=== PATIENT | male | born 1945 | race African-American/Black ===

== ENCOUNTER → 2017-06-15 | Outpatient (CLI) | payer MEDICARE, OTHER ==
[2016-08-13 15:00] VITALS: BP 106/75
[~2017-06-15] MED LIST: CYCL5TAB PO; HYDR50TA6 PO; LORA10CA PO; METO50TA6 PO; SERT100T8 PO
[2017-06-15 15:37] LABS: CREATININE 1.1 mg/dL (0.7-1.3); GFR 80.1
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
== END | disposition home or self-care (01) ==
LOC: RAD 14:27
PROVIDERS: ATTEND Psychiatry & Neurology Neurology
DX: M79.5 Residual foreign body in soft tissue (principal); R26.81 Unsteadiness on feet
CPT/HCPCS: 36415; 71020; 82306; 82550; 82565; 82607; 84443; 84520

== ENCOUNTER → 2017-06-21 | Outpatient (CLI) | payer MEDICARE, OTHER ==
[2016-08-13 15:00] VITALS: BP 106/75
[~2017-06-21] MED LIST changes: +METO50TA2 PO; -METO50TA6 PO
--- NOTE | 2017-06-23 16:48 | EEG ---
DATE OF SERVICE: 06/21/2017 OBJECTIVE: This is a 72-year-old male patient with history of cognitive impairment and memory problems. EEG was requested to evaluate cerebral activity. METHODS: Twenty electrodes were applied according to the international 10-20 electrode placement system. EKG monitoring, hyperventilation, intermittent photic stimulation, monopolar and bipolar montages are routinely utilized. The record was obtained on a digital system with video monitoring. FINDINGS: 1. Background: The patient was recorded in the awake and drowsy states. No actual sleep state was recorded. The overall background amplitude is 10-20 microvolts. A posterior dominant rhythm of 8-9 Hz is observed. 2. Abnormalities: No specific epileptiform discharge or electrographic seizure is seen. No focal or diffuse slowing. 3. Activation: Hyperventilation was performed with good efforts and normal response. Intermittent photic stimulation was performed with photic driving. No specific epileptiform discharge or electrographic seizure induced by hyperventilation or intermittent photic stimulation. IMPRESSION: This EEG is within the normal limits of the study for the awake and drowsy states. No actual sleep state was recorded. No focal, lateralizing, specific epileptiform discharge or electrographic seizure is seen. SALMA HENNESSY MD DR: RAY/pratima JOB#: [id number] / [id number] DIANNA
== END | disposition home or self-care (01) ==
LOC: RT 08:28
PROVIDERS: ATTEND Psychiatry & Neurology Neurology
DX: G31.84 Mild cognitive impairment of uncertain or unknown etiology (principal); R06.4 Hyperventilation
CPT/HCPCS: 95816

== ENCOUNTER → 2017-08-07 | Outpatient (CLI) | payer MEDICARE, OTHER ==
[2016-08-13 15:00] VITALS: BP 106/75
[~2017-08-07] MED LIST changes: -METO50TA2 PO; +METO50TA6 PO
--- NOTE | 2017-08-07 12:33 | KCIC ---
CT cervical spine INDICATION: Unsteady gait for one year. Leg weakness.. COMPARISON: None Available. Technique: Standard noncontrast axial images. Additional sagittal and coronal reconstructions were also performed. Exposure: One or more of the following individualized dose reduction techniques were utilized for this examination: 1. Automated exposure control 2. Adjustment of the mA and/or kV according to patient size 3. Use of iterative reconstruction technique. FINDINGS: Lower skull is unremarkable Ring of C1 is intact Relationship of C1 with the occipital condyles is intact. Relationship of C1 with C2 is maintained. No evidence of acute fracture. No aggressive bone destruction. No significant subluxation. There is straightening of the normal cervical lordosis. Multilevel degenerative spondylosis. There are osteophytes. Uncovertebral joint degenerative changes and facet joint hypertrophy are noted. Mild central osseous spinal canal narrowing at multiple levels. Bilateral neural foraminal stenosis at multiple levels. The paraspinous soft tissues are unremarkable. Lung apices are clear. Impression: 1. Multilevel cervical spondylosis. Mild osseous central canal narrowing and bilateral multilevel neural foraminal stenosis. 2. No evidence of acute fracture or subluxation. Electronically signed by: Júnior Maldonado MD (08/07/2017 12:30 PM) [facility]
== END | disposition home or self-care (01) ==
LOC: KCIC CT 09:45
PROVIDERS: ATTEND Psychiatry & Neurology Neurology
DX: M47.892 Other spondylosis, cervical region (principal); R26.81 Unsteadiness on feet; R53.1 Weakness
CPT/HCPCS: 72125

== ENCOUNTER → 2017-08-16 | Outpatient (CLI) | payer MEDICARE, OTHER ==
[2016-08-13 15:00] VITALS: BP 106/75
[2017-08-16 15:28] LABS: CREATININE 1.2 mg/dL (0.7-1.3); GFR 72.4
== END | disposition home or self-care (01) ==
LOC: LAB 14:44
PROVIDERS: ATTEND Psychiatry & Neurology Neurology
DX: R32 Unspecified urinary incontinence (principal)
CPT/HCPCS: 36415; 82306; 82550; 82565; 84443; 84520

== ENCOUNTER → 2017-09-20 | Outpatient (CLI) | payer MEDICARE, OTHER | END | disposition home or self-care (01) | LOC: CT 08:12 | DX: M53.2X6 Spinal instabilities, lumbar region (principal); M47.896 Other spondylosis, lumbar region; M48.061 Spinal stenosis, lumbar region without neurogenic claudication; M51.26 Other intervertebral disc displacement, lumbar region; M51.27 Other intervertebral disc displacement, lumbosacral region; R26.89 Other abnormalities of gait and mobility | CPT/HCPCS: 72131 ==

== ENCOUNTER 2017-09-27 18:05 | Emergency (ER) | payer MEDICARE, OTHER ==
[2017-09-27 18:20] LABS: POC GLUCOSE 132 mg/dL (70-99)
[2017-09-27 18:27] LABS: ADD MAN DIFF? NO
[2017-09-27] MEDS: IV NORMAL SALINE 1000ML BAG 1,000 ML IV ×2 (18:28)
[2017-09-27 18:29] LABS: BASO % 1 % (0-3); EOS # 0.1 x10^3/uL (0.0-0.7); EOS % 1 % (0-3); HEMATOCRIT 39.4 % (39.0-53.0); HEMOGLOBIN 13.3 g/dL (13.0-17.5); LYMPH # 2.6 x10^3/uL (1.0-4.8); LYMPH % 50 % (24-48); MEAN CORPUSCULAR HEMOGLOBIN 32 pg (25-35); MEAN CORPUSCULAR HGB CONC 34 g/dL (31-37); MEAN CORPUSCULAR VOLUME 94 fL (79-100); MONO # 0.3 x10^3/uL (0.0-1.1); MONO % 6 % (0-9); NEUT # 2.3 x10^3uL (1.8-7.7); NEUT % 42 % (31-73); PLATELET COUNT 278 x10^3/uL (140-400); RED CELL DISTRIBUTION WIDTH 13.8 % (11.5-14.5); WHITE BLOOD COUNT 5.3 x10^3/uL (4.0-11.0)
[2017-09-27 18:42] LABS: ANION GAP 6 (6-14); BLOOD UREA NITROGEN 19 mg/dL (8-26); BUN/CREATININE RATIO 19 (6-20); CALCIUM 8.3 mg/dL (8.5-10.1); CARBON DIOXIDE 29 mmol/L (21-32); CHLORIDE 103 mmol/L (98-107); GFR 89.4; GLUCOSE 153 mg/dL (70-99); POTASSIUM 3.7 mmol/L (3.5-5.1); SODIUM 138 mmol/L (136-145)
[2017-09-27 18:43] LABS: D-DIMER 0.52 ug/mlFEU (0.00-0.50)
[2017-09-27 18:48] LABS: ALBUMIN 3.9 g/dL (3.4-5.0); ALK PHOS 64 U/L (46-116); ALT (SGPT) 16 U/L (16-63); AST (SGOT) 18 U/L (15-37); MAGNESIUM 1.8 mg/dL (1.8-2.4); TOTAL BILIRUBIN 0.4 mg/dL (0.2-1.0); TOTAL PROTEIN 7.8 g/dL (6.4-8.2)
[2017-09-27 18:51] LABS: TROPONINI < 0.017 ng/mL (0.000-0.055)
[2017-09-27 18:53] LABS: NT-PRO BNP 73 pg/mL (0-124)
[2017-09-27 18:57] LABS: THYROID STIM HORMONE (TSH) 0.961 uIU/mL (0.358-3.74)
== END 2017-09-27 22:00 | disposition home or self-care (01) ==
LOC: ER 18:05
DX: R20.2 Paresthesia of skin (principal); R20.0 Anesthesia of skin; R42 Dizziness and giddiness; E78.00 Pure hypercholesterolemia, unspecified; I10 Essential (primary) hypertension; M19.90 Unspecified osteoarthritis, unspecified site; Z79.899 Other long term (current) drug therapy
CPT/HCPCS: 36415; 71045; 80053; 82962; 83735; 83880; 84443; 84484; 85025; 85379; 93005; 96360; 99285-25; J7030

== ENCOUNTER → 2018-03-29 | Outpatient (CLI) | payer MEDICARE, OTHER ==
[2018-03-29 16:07] LABS: ALT (SGPT) 18 U/L (16-63); AST (SGOT) 14 U/L (15-37); BLOOD UREA NITROGEN 20 mg/dL (8-26); CREATINE KINASE 147 U/L (39-308); CREATININE 1.1 mg/dL (0.7-1.3); GFR 79.8
[2018-03-29 16:07] LABS: GLUCOSE 83 mg/dL (70-99)
[2018-03-29 16:54] LABS: VITAMIN-B12 252 pg/mL (247-911)
== END | disposition home or self-care (01) ==
LOC: LAB 15:35
DX: R20.0 Anesthesia of skin (principal); I10 Essential (primary) hypertension; E78.5 Hyperlipidemia, unspecified; Z79.899 Other long term (current) drug therapy
CPT/HCPCS: 36415; 82550; 82565; 82607; 82947; 84450; 84460; 84520

== ENCOUNTER 2018-11-09 10:19 | Observation (INO) | payer MEDICARE, OTHER ==
[~2018-11-09] VITALS: Ht 180.3 cm; Wt 89.4 kg
[2018-11-09] MEDS ORDERED: MECLIZINE HCL 12.5 MG TABLET. PO ONE (10:45)
[2018-11-09] MEDS ORDERED: IV NORMAL SALINE 1000ML BAG 1,000 ML IV ONE ×2 (10:45→15:15)
--- NOTE | 2018-11-09 10:45 | PHYS DOC ---
Past Medical History Past Medical History: High Cholesterol, Hypertension, Other Additional Past Medical Histor: osteoarthritis Past Surgical History: Other Additional Past Surgical Histo: unknown Alcohol Use: None Drug Use: None Adult General Chief Complaint Chief Complaint: DIZZY/LIGHT HEADED HPI HPI Patient is a 73 year old male with history of hypertension, high cholesterol, presenting to the ED today complaining of dizziness especially when he is up and moving that began this morning when he was getting ready to go to a . Patient states he attempted to ambulate to his car, he became dizzy and weak. His daughter had to get him to the hospital. Denies any headache, chest pain or shortness of breath. Patient states his dizziness is worse when he is up and moving. He states he has a sensation of things around him spinning. Review of Systems Review of Systems Constitutional: Denies fever or chills [] Eyes: Denies change in visual acuity, redness, or eye pain [] HENT: Denies nasal congestion or sore throat [] Respiratory: Denies cough or shortness of breath [] Cardiovascular: No additional information not addressed in HPI [] GI: Denies abdominal pain, nausea, vomiting, bloody stools or diarrhea [] : Denies dysuria or hematuria [] Musculoskeletal: Denies back pain or joint pain [] Integument: Denies rash or skin lesions [] Neurologic: Reports dizziness. Denies headache, focal weakness or sensory changes [] All other systems were reviewed and found to be within normal limits, except as documented in this note. Current Medications Current Medications Current Medications Medications (Trade) Dose Ordered Sig/Regine Start Time Stop Time Status Last Admin Dose Admin Meclizine HCl (Antivert) 25 mg 1X ONCE 11/09/18 10:45 11/09/18 10:46 DC 11/09/18 11:41 25 MG Sodium Chloride 1,000 ml @ 1,000 mls/hr 1X ONCE 11/09/18 10:45 11/09/18 11:44 DC 11/09/18 11:43 1,000 MLS/HR Allergies Allergies Allergies Coded Allergies Type Severity Reaction Last Updated Verified No Known Drug Allergies 08/10/16 No Physical Exam Physical Exam Constitutional: Well developed, well nourished, no acute distress, non-toxic appearance. [] HENT: Normocephalic, atraumatic, bilateral external ears normal, oropharynx moist, no oral exudates, nose normal. [] Eyes: PERRLA, EOMI, conjunctiva normal, no discharge. [] Neck: Normal range of motion, no tenderness, supple, no stridor. [] Cardiovascular:Heart rate regular rhythm, no murmur [] Lungs & Thorax: Bilateral breath sounds clear to auscultation [] Abdomen: Bowel sounds normal, soft, no tenderness, no masses, no pulsatile masses. [] Skin: Warm, dry, no erythema, no rash. [] Back: No tenderness, no CVA tenderness. [] Extremities: No tenderness, no cyanosis, no clubbing, ROM intact, no edema. [] Neurologic: Alert and oriented X 3, normal motor function, normal sensory function, no focal deficits noted. Cranial nerves II through XII intact Psychologic: Affect normal, judgement normal, mood normal. [] Current Patient Data Vital Signs Vital Signs Date Time Temp Pulse Resp B/P (MAP) Pulse Ox O2 Delivery O2 Flow Rate FiO2 11/09/18 14:03 69 18 98 11/09/18 10:20 98.3 148/85 (106) Room Air 98.3 Lab Values Laboratory Tests Test 11/09/18 11:03 11/09/18 11:10 Glucose (Fingerstick) 82 mg/dL (70-99) White Blood Count 4.5 x10^3/uL (4.0-11.0) Red Blood Count 4.08 x10^6/uL (4.30-5.70) L Hemoglobin 12.7 g/dL (13.0-17.5) L Hematocrit 38.7 % (39.0-53.0) L Mean Corpuscular Volume 95 fL (79-100) Mean Corpuscular Hemoglobin 31 pg (25-35) Mean Corpuscular Hemoglobin Concent 33 g/dL (31-37) Red Cell Distribution Width 13.4 % (11.5-14.5) Platelet Count 213 x10^3/uL (140-400) Neutrophils (%) (Auto) 49 % (31-73) Lymphocytes (%) (Auto) 44 % (24-48) Monocytes (%) (Auto) 6 % (0-9) Eosinophils (%) (Auto) 0 % (0-3) Basophils (%) (Auto) 0 % (0-3) Neutrophils # (Auto) 2.2 x10^3uL (1.8-7.7) Lymphocytes # (Auto) 2.0 x10^3/uL (1.0-4.8) Monocytes # (Auto) 0.3 x10^3/uL (0.0-1.1) Eosinophils # (Auto) 0.0 x10^3/uL (0.0-0.7) Basophils # (Auto) 0.0 x10^3/uL (0.0-0.2) Sodium Level 141 mmol/L (136-145) Potassium Level 3.9 mmol/L (3.5-5.1) Chloride Level 105 mmol/L (98-107) Carbon Dioxide Level 28 mmol/L (21-32) Anion Gap 8 (6-14) Blood Urea Nitrogen 16 mg/dL (8-26) Creatinine 0.8 mg/dL (0.7-1.3) Estimated GFR (Cockcroft-Gault) 115.3 BUN/Creatinine Ratio 20 (6-20) Glucose Level 97 mg/dL (70-99) Calcium Level 8.7 mg/dL (8.5-10.1) Magnesium Level 2.3 mg/dL (1.8-2.4) Total Bilirubin 0.5 mg/dL (0.2-1.0) Aspartate Amino Transferase (AST) 15 U/L (15-37) Alanine Aminotransferase (ALT) 22 U/L (16-63) Alkaline Phosphatase 61 U/L (46-116) Troponin I Quantitative < 0.017 ng/mL (0.000-0.055) LK-Ucs-H-Type Natriuretic Peptide 93 pg/mL (0-124) Total Protein 7.0 g/dL (6.4-8.2) Albumin 3.3 g/dL (3.4-5.0) L Albumin/Globulin Ratio 0.9 (1.0-1.7) L Thyroid Stimulating Hormone (TSH) 0.985 uIU/mL (0.358-3.74) Laboratory Tests 11/09/18 11:10 Laboratory Tests 11/09/18 11:10 EKG EKG [] Radiology/Procedures Radiology/Procedures [] Course & Med Decision Making Course & Med Decision Making Pertinent Labs and Imaging studies reviewed. (See chart for details) This is a 73-year-old male patient presented to the ED today with dizziness that began this morning. Patient appears to have vertigo physical exam. His lab work is negative. CT of the head is negative for chest x-ray is negative. We tried to get patient up and ambulating. He walked for a short distance but started complaining of dizziness while ambulating. He felt things around him is spinning. Spoke with Dr. Rico who will follow-up with patient. Spoke with who accepted patient for admission. Dragon Disclaimer Dragon Disclaimer This electronic medical record was generated, in whole or in part, using a voice recognition dictation system. Departure Departure Impression: Primary Impression: Dizziness Additional Impression: Vertigo Disposition: ADMITTED INPATIENT Condition: STABLE Referrals: IGNACIO DUKE (PCP) Problem Qualifiers SAMMY NOEL APRN Nov 09, 2018 10:45
[2018-11-09 11:20] LABS: BASO % 0 % (0-3); EOS % 0 % (0-3); HEMATOCRIT 38.7 % (39.0-53.0); HEMOGLOBIN 12.7 g/dL (13.0-17.5); LYMPH % 44 % (24-48); MEAN CORPUSCULAR HEMOGLOBIN 31 pg (25-35); MEAN CORPUSCULAR HGB CONC 33 g/dL (31-37); MEAN CORPUSCULAR VOLUME 95 fL (79-100); MONO # 0.3 x10^3/uL (0.0-1.1); MONO % 6 % (0-9); NEUT # 2.2 x10^3uL (1.8-7.7); NEUT % 49 % (31-73); PLATELET COUNT 213 x10^3/uL (140-400); RED BLOOD COUNT 4.08 x10^6/uL (4.30-5.70); RED CELL DISTRIBUTION WIDTH 13.4 % (11.5-14.5); WHITE BLOOD COUNT 4.5 x10^3/uL (4.0-11.0)
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
--- NOTE | 2018-11-09 11:33 | RAD ---
CT HEAD WO CONTRAST Indication: Dizziness. Exposure: One or more of the following individualized dose reduction techniques were utilized for this examination: 1. Automated exposure control 2. Adjustment of the mA and/or kV according to patient size 3. Use of iterative reconstruction technique. Comparison: August 10, 2016 Contrast: None FINDINGS: Posterior fossa unremarkable. No evidence of acute intracranial hemorrhage, mass effect, midline shift or abnormal extra-axial fluid collection. Low-density in the white matter bilaterally, a nonspecific finding, but which is commonly due to chronic small vessel ischemic disease in a patient of this age. Mild prominence of ventricles and sulci compatible with mild atrophy. Orbits unremarkable. Partially visualized sinuses are clear. Intracranial arterial calcifications. No acute skull abnormality. IMPRESSION: Chronic findings detailed above. No acute intracranial hemorrhage or mass effect. Electronically signed by: Júnior Maldonado MD (11/09/2018 11:30 AM) [id number]
[2018-11-09 12:06] LABS: CALCIUM 8.7 mg/dL (8.5-10.1); CREATININE 0.8 mg/dL (0.7-1.3); GFR 115.3; POTASSIUM 3.9 mmol/L (3.5-5.1)
[2018-11-09 12:36] LABS: ALBUMIN 3.3 g/dL (3.4-5.0); ALBUMIN/GLOBULIN RATIO 0.9 (1.0-1.7); MAGNESIUM 2.3 mg/dL (1.8-2.4); TOTAL BILIRUBIN 0.5 mg/dL (0.2-1.0)
--- NOTE | 2018-11-09 15:14 | EKG ---
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
[2018-11-09] MEDS ORDERED: ACETAMINOPHEN 325 MG TABLET. PO PRN ×2 (15:15→16:15)
[2018-11-09] MEDS ORDERED: ONDANSETRON PF 4 MG/2 ML VIAL. IV PRN ×3 (15:15→16:15)
[2018-11-09] MEDS ORDERED: MECLIZINE HCL 12.5 MG TABLET. PO PRN (15:30)
[2018-11-09 16:03] VITALS: BP 165/104
[2018-11-09] MEDS ORDERED: DOCUSATE SODIUM 100 MG CAPSULE. PO PRN (16:15)
[2018-11-09] MEDS ORDERED: LORazepam 0.5 MG TABLET PO PRN (16:15)
[2018-11-09] MEDS ORDERED: guaiFENesin ORAL 200 MG/10 ML LIQUID. PO PRN (16:15)
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
[2018-11-09] MEDS ORDERED: CYCLOBENZAPRINE 10 MG TABLET. PO PRN (16:45)
[2018-11-09] MEDS: IPRATRPIUM/ALBUTEROL 0.5/2.5MG 3 ML NEBU. NEB SCH ×3 (17:00→23:38)
[2018-11-09 19:56] VITALS: BP 128/78
[2018-11-09] MEDS ORDERED: POLYETHYLENE GLYCOL 3350 17 GM PACKET. PO PRN (20:15)
[2018-11-09] MEDS: METOPROLOL TART IMMED RELEASE 50 MG TABLET. PO SCH (21:07)
[2018-11-09 23:16] VITALS: BP 152/93
[2018-11-10] VITALS (7 sets, daily range): BP systolic 126–222; BP diastolic 75–96
[2018-11-10] MEDS: LABETALOL 20 MG/4 ML DISP.SYRIN. IVP PRN (03:18)
[2018-11-10] MEDS: IPRATRPIUM/ALBUTEROL 0.5/2.5MG 3 ML NEBU. NEB SCH ×2 (03:32→07:23)
[2018-11-10 05:58] LABS: BASO % 1 % (0-3); EOS % 1 % (0-3); HEMATOCRIT 36.6 % (39.0-53.0); HEMOGLOBIN 12.3 g/dL (13.0-17.5); LYMPH % 45 % (24-48); MEAN CORPUSCULAR HEMOGLOBIN 32 pg (25-35); MEAN CORPUSCULAR HGB CONC 34 g/dL (31-37); MEAN CORPUSCULAR VOLUME 95 fL (79-100); MONO # 0.2 x10^3/uL (0.0-1.1); MONO % 5 % (0-9); NEUT # 2.2 x10^3uL (1.8-7.7); NEUT % 48 % (31-73); PLATELET COUNT 206 x10^3/uL (140-400); RED BLOOD COUNT 3.87 x10^6/uL (4.30-5.70); RED CELL DISTRIBUTION WIDTH 13.7 % (11.5-14.5); WHITE BLOOD COUNT 4.5 x10^3/uL (4.0-11.0)
[2018-11-10 06:12] LABS: CALCIUM 8.3 mg/dL (8.5-10.1); GFR 89.1; POTASSIUM 3.8 mmol/L (3.5-5.1)
[2018-11-10] MEDS ORDERED: MAGNESIUM CITRATE 296 ML SOLUTION. PO ONE (09:00)
[2018-11-10] MEDS: hydroCHLOROthiazide 25 MG TABLET PO SCH (09:44)
[2018-11-10] MEDS: METOPROLOL TART IMMED RELEASE 50 MG TABLET. PO SCH ×2 (09:44→20:50)
[2018-11-10] MEDS ORDERED: ALBUTEROL SULFATE 2.5 MG/3 ML NEBU. NEB PRN (09:45)
[2018-11-10] MEDS: SERTRALINE 50 MG TABLET. PO SCH (09:48)
[2018-11-10] MEDS: ENOXAPARIN 40 MG/0.4 ML SYRINGE. SQ SCH (09:52)
--- NOTE | 2018-11-10 12:26 | PDOC ---
PROGRESS NOTES Chief Complaint Chief Complaint Unsteady gait concern for posterior circulation event, currently resolved Lower extremity weakness Slurred speech concern for neurological event History of hypertension fairly controlled at the present time Constipation Plan: Symptomatic relief of symptoms, mag citrate We will do MRI of the head Neurology consultation has been requested Resume home medications Fall precautions Further recommendations based on the clinical course History of Present Illness History of Present Illness No new complaints during my visit. The patient is neurologically intact at the present time he does not refer recurrence of the symptoms that brought him into the hospital. Plan of care explained detail Vitals Vitals Vital Signs Date Time Temp Pulse Resp B/P (MAP) Pulse Ox O2 Delivery O2 Flow Rate FiO2 11/10/18 11:00 97.9 82 20 140/86 (104) 98 Room Air 97.9 Physical Exam General: Alert, Oriented X3, Cooperative Heart: Regular rate, Normal S1, Normal S2 Lungs: Clear Abdomen: Normal bowel sounds, Soft, No tenderness Extremities: No clubbing, No cyanosis, No edema Skin: No rashes, No breakdown Labs LABS Laboratory Tests Test 11/10/18 05:05 White Blood Count 4.5 x10^3/uL (4.0-11.0) Red Blood Count 3.87 x10^6/uL (4.30-5.70) Hemoglobin 12.3 g/dL (13.0-17.5) Hematocrit 36.6 % (39.0-53.0) Mean Corpuscular Volume 95 fL (79-100) Mean Corpuscular Hemoglobin 32 pg (25-35) Mean Corpuscular Hemoglobin Concent 34 g/dL (31-37) Red Cell Distribution Width 13.7 % (11.5-14.5) Platelet Count 206 x10^3/uL (140-400) Neutrophils (%) (Auto) 48 % (31-73) Lymphocytes (%) (Auto) 45 % (24-48) Monocytes (%) (Auto) 5 % (0-9) Eosinophils (%) (Auto) 1 % (0-3) Basophils (%) (Auto) 1 % (0-3) Neutrophils # (Auto) 2.2 x10^3uL (1.8-7.7) Lymphocytes # (Auto) 2.0 x10^3/uL (1.0-4.8) Monocytes # (Auto) 0.2 x10^3/uL (0.0-1.1) Eosinophils # (Auto) 0.0 x10^3/uL (0.0-0.7) Basophils # (Auto) 0.0 x10^3/uL (0.0-0.2) Sodium Level 143 mmol/L (136-145) Potassium Level 3.8 mmol/L (3.5-5.1) Chloride Level 107 mmol/L (98-107) Carbon Dioxide Level 27 mmol/L (21-32) Anion Gap 9 (6-14) Blood Urea Nitrogen 12 mg/dL (8-26) Creatinine 1.0 mg/dL (0.7-1.3) Estimated GFR (Cockcroft-Gault) 89.1 Glucose Level 131 mg/dL (70-99) Calcium Level 8.3 mg/dL (8.5-10.1) Assessment and Plan Assessmemt and Plan Problems Medical Problems: (1) Dizziness Status: Acute (2) Vertigo Status: Acute Comment Review of Relevant I have reviewed the following items catia (where applicable) has been applied. Labs Laboratory Tests Test 11/09/18 11:03 11/09/18 11:10 11/10/18 05:05 Glucose (Fingerstick) 82 mg/dL (70-99) White Blood Count 4.5 x10^3/uL (4.0-11.0) 4.5 x10^3/uL (4.0-11.0) Red Blood Count 4.08 x10^6/uL (4.30-5.70) 3.87 x10^6/uL (4.30-5.70) Hemoglobin 12.7 g/dL (13.0-17.5) 12.3 g/dL (13.0-17.5) Hematocrit 38.7 % (39.0-53.0) 36.6 % (39.0-53.0) Mean Corpuscular Volume 95 fL (79-100) 95 fL (79-100) Mean Corpuscular Hemoglobin 31 pg (25-35) 32 pg (25-35) Mean Corpuscular Hemoglobin Concent 33 g/dL (31-37) 34 g/dL (31-37) Red Cell Distribution Width 13.4 % (11.5-14.5) 13.7 % (11.5-14.5) Platelet Count 213 x10^3/uL (140-400) 206 x10^3/uL (140-400) Neutrophils (%) (Auto) 49 % (31-73) 48 % (31-73) Lymphocytes (%) (Auto) 44 % (24-48) 45 % (24-48) Monocytes (%) (Auto) 6 % (0-9) 5 % (0-9) Eosinophils (%) (Auto) 0 % (0-3) 1 % (0-3) Basophils (%) (Auto) 0 % (0-3) 1 % (0-3) Neutrophils # (Auto) 2.2 x10^3uL (1.8-7.7) 2.2 x10^3uL (1.8-7.7) Lymphocytes # (Auto) 2.0 x10^3/uL (1.0-4.8) 2.0 x10^3/uL (1.0-4.8) Monocytes # (Auto) 0.3 x10^3/uL (0.0-1.1) 0.2 x10^3/uL (0.0-1.1) Eosinophils # (Auto) 0.0 x10^3/uL (0.0-0.7) 0.0 x10^3/uL (0.0-0.7) Basophils # (Auto) 0.0 x10^3/uL (0.0-0.2) 0.0 x10^3/uL (0.0-0.2) Sodium Level 141 mmol/L (136-145) 143 mmol/L (136-145) Potassium Level 3.9 mmol/L (3.5-5.1) 3.8 mmol/L (3.5-5.1) Chloride Level 105 mmol/L (98-107) 107 mmol/L (98-107) Carbon Dioxide Level 28 mmol/L (21-32) 27 mmol/L (21-32) Anion Gap 8 (6-14) 9 (6-14) Blood Urea Nitrogen 16 mg/dL (8-26) 12 mg/dL (8-26) Creatinine 0.8 mg/dL (0.7-1.3) 1.0 mg/dL (0.7-1.3) Estimated GFR (Cockcroft-Gault) 115.3 89.1 BUN/Creatinine Ratio 20 (6-20) Glucose Level 97 mg/dL (70-99) 131 mg/dL (70-99) Calcium Level 8.7 mg/dL (8.5-10.1) 8.3 mg/dL (8.5-10.1) Magnesium Level 2.3 mg/dL (1.8-2.4) Total Bilirubin 0.5 mg/dL (0.2-1.0) Aspartate Amino Transf (AST/SGOT) 15 U/L (15-37) Alanine Aminotransferase (ALT/SGPT) 22 U/L (16-63) Alkaline Phosphatase 61 U/L (46-116) Troponin I Quantitative < 0.017 ng/mL (0.000-0.055) AO-Pkg-O-Type Natriuretic Peptide 93 pg/mL (0-124) Total Protein 7.0 g/dL (6.4-8.2) Albumin 3.3 g/dL (3.4-5.0) Albumin/Globulin Ratio 0.9 (1.0-1.7) Thyroid Stimulating Hormone (TSH) 0.985 uIU/mL (0.358-3.74) Laboratory Tests Test 11/10/18 05:05 White Blood Count 4.5 x10^3/uL (4.0-11.0) Red Blood Count 3.87 x10^6/uL (4.30-5.70) Hemoglobin 12.3 g/dL (13.0-17.5) Hematocrit 36.6 % (39.0-53.0) Mean Corpuscular Volume 95 fL (79-100) Mean Corpuscular Hemoglobin 32 pg (25-35) Mean Corpuscular Hemoglobin Concent 34 g/dL (31-37) Red Cell Distribution Width 13.7 % (11.5-14.5) Platelet Count 206 x10^3/uL (140-400) Neutrophils (%) (Auto) 48 % (31-73) Lymphocytes (%) (Auto) 45 % (24-48) Monocytes (%) (Auto) 5 % (0-9) Eosinophils (%) (Auto) 1 % (0-3) Basophils (%) (Auto) 1 % (0-3) Neutrophils # (Auto) 2.2 x10^3uL (1.8-7.7) Lymphocytes # (Auto) 2.0 x10^3/uL (1.0-4.8) Monocytes # (Auto) 0.2 x10^3/uL (0.0-1.1) Eosinophils # (Auto) 0.0 x10^3/uL (0.0-0.7) Basophils # (Auto) 0.0 x10^3/uL (0.0-0.2) Sodium Level 143 mmol/L (136-145) Potassium Level 3.8 mmol/L (3.5-5.1) Chloride Level 107 mmol/L (98-107) Carbon Dioxide Level 27 mmol/L (21-32) Anion Gap 9 (6-14) Blood Urea Nitrogen 12 mg/dL (8-26) Creatinine 1.0 mg/dL (0.7-1.3) Estimated GFR (Cockcroft-Gault) 89.1 Glucose Level 131 mg/dL (70-99) Calcium Level 8.3 mg/dL (8.5-10.1) Medications Current Medications Meclizine HCl (Antivert) 25 mg 1X ONCE PO Last administered on 11/09/18at 11:41 ; Start 11/09/18 at 10:45; Stop 11/09/18 at 10:46; Status DC Sodium Chloride 1,000 ml @ 1,000 mls/hr 1X ONCE IV Last administered on at 11:43; Start 11/09/18 at 10:45; Stop 11/09/18 at 11:44; Status DC Ondansetron HCl (Zofran) 4 mg PRN Q8HRS PRN IV NAUSEA/VOMITING; Start 11/09/18 at 15:15; Stop 11/10/18 at 15:14; Status UNV Acetaminophen (Tylenol) 650 mg PRN Q4HRS PRN PO FEVER; Start 11/09/18 at 15:15; Stop 11/09/18 at 20:07; Status DC Sodium Chloride 1,000 ml @ 125 mls/hr 1X ONCE IV Last administered on at 15:59; Start 11/09/18 at 15:15; Stop 11/09/18 at 23:14; Status DC Ondansetron HCl (Zofran) 4 mg PRN Q6HRS PRN IV NAUSEA/VOMITING; Start 11/09/18 at 15:15 Meclizine HCl (Antivert) 12.5 mg PRN Q6HRS PRN PO DIZZINESS; Start 11/09/18 at 15:30 Ondansetron HCl (Zofran) 4 mg PRN Q4HRS PRN IV NAUSEA/VOMITING; Start 11/09/18 at 16:15; Stop 11/09/18 at 16:32; Status DC Acetaminophen (Tylenol) 650 mg PRN Q4HRS PRN PO TEMP OVER 100.4F OR MILD PAIN; Start 11/09/18 at 16:15 Docusate Sodium (Colace) 100 mg PRN BID PRN PO HARD STOOLS Last administered on 11/10/18 09:49; Start 11/09/18 at 16:15 Albuterol/ Ipratropium (Duoneb) 3 ml Q4HRS NEB Last administered on 11/10/18 07 :23; Start 11/09/18 at 17:00; Stop 11/10/18 at 09:39; Status DC Guaifenesin (Robitussin) 200 mg PRN Q4HRS PRN PO COUGH; Start 11/09/18 at 16:15 Lorazepam (Ativan) 0.5 mg PRN Q4HRS PRN PO ANXIETY / AGITATION; Start 11/09/18 at 16:15 Enoxaparin Sodium (Lovenox 40mg Syringe) 40 mg DAILY SQ Last administered on 09:52; Start 11/10/18 at 09:00 Metoprolol Tartrate (Lopressor) 100 mg BID PO Last administered on 11/10/18 09: 44; Start 11/09/18 at 21:00 Cyclobenzaprine HCl (Flexeril) 5 mg PRN TID PRN PO MUSCLE SPASMS; Start at 16:45 Hydrochlorothiazide (Hydrodiuril) 50 mg DAILY PO Last administered on 11/10/18at 09:44; Start 11/10/18 at 09:00 Sertraline HCl (Zoloft) 100 mg DAILY PO Last administered on 11/10/18 09:48; Start 11/10/18 at 09:00 Polyethylene Glycol (miraLAX PACKET) 17 gm PRN DAILY PRN PO CONSTIPATION Last administered on 11/09/18at 21:07; Start 11/09/18 at 20:15 Labetalol HCl (Normodyne Iv Push) 10 mg PRN Q8HRS PRN IVP HYPERTENSION, SEE COMMENTS Last administered on 11/10/18at 03:18; Start 11/10/18 at 03:15 Magnesium Citrate (Citroma) 296 ml 1X ONCE PO Last administered on 11/10/18at 09 :43; Start 11/10/18 at 09:00; Stop 11/10/18 at 09:01; Status DC Albuterol Sulfate (Ventolin Neb Soln) 2.5 mg PRN Q4HRS PRN NEB SHORTNESS OF BREATH; Start 11/10/18 at 09:45 Active Scripts Active Cyclobenzaprine Hcl 5 Mg Tablet 1 Tab PO TID PRN Reported Metoprolol Tartrate 50 Mg Tablet 2 Tab PO BID Claritin (Loratadine) 10 Mg Capsule 10 Mg PO Hydrochlorothiazide Tablet (Hydrochlorothiazide) 50 Mg Tablet 1 Tab PO DAILY Sertraline Hcl 100 Mg Tablet 100 Mg PO DAILY Vitals/I & O Vital Sign - Last 24 Hours 11/09/18 11/09/18 11/09/18 11/09/18 12:33 13:03 13:33 14:03 Pulse 54 60 62 69 Resp 18 18 18 18 Pulse Ox 99 98 98 98 11/09/18 11/09/18 11/09/18 11/09/18 14:47 16:03 16:20 19:56 Temp 97.8 98.3 97.8 98.3 Pulse 60 69 85 Resp 18 18 16 B/P (MAP) 165/104 (124) 128/78 (95) Pulse Ox 97 99 98 O2 Delivery Room Air Room Air Room Air 11/09/18 11/09/18 11/09/18 11/09/18 20:03 20:32 21:07 23:16 Temp 98.1 98.1 Pulse 85 63 Resp 16 B/P (MAP) 128/78 152/93 (112) Pulse Ox 98 100 O2 Delivery Room Air Room Air Room Air 11/10/18 11/10/18 11/10/18 11/10/18 03:15 03:18 06:38 07:00 Temp 98.1 98.6 98.1 98.6 Pulse 76 76 99 84 Resp 16 18 20 B/P (MAP) 222/96 (138) 222/96 157/95 (115) 140/89 (106) Pulse Ox 98 97 97 O2 Delivery Room Air Room Air Room Air 11/10/18 11/10/18 11/10/18 11/10/18 07:24 08:00 09:44 11:00 Temp 97.9 97.9 Pulse 84 82 Resp 20 B/P (MAP) 140/89 140/86 (104) Pulse Ox 100 98 O2 Delivery Room Air Room Air Room Air Intake and Output 11/09/18 11/09/18 11/10/18 15:00 23:00 07:00 Intake Total 1000 ml 480 ml Output Total 800 ml Balance 1000 ml 480 ml -800 ml ZENIA HENDRICKS MD Nov 10, 2018 12:26
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
[2018-11-11 03:49] VITALS: BP 147/95
[2018-11-11 07:00] VITALS: BP 173/103
[2018-11-11] MEDS: LABETALOL 20 MG/4 ML DISP.SYRIN. IVP PRN (08:04)
[2018-11-11] MEDS: SERTRALINE 50 MG TABLET. PO SCH (09:00)
[2018-11-11] MEDS: hydroCHLOROthiazide 25 MG TABLET PO SCH (09:00)
[2018-11-11] MEDS: ENOXAPARIN 40 MG/0.4 ML SYRINGE. SQ SCH (09:00)
[2018-11-11] MEDS ORDERED: MECL12.52 PO (09:37)
--- NOTE | 2018-11-11 09:42 | PDOC3 ---
Discharge Summary Visit Information Date of Admission: Nov 09, 2018 Date of Discharge: Nov 11, 2018 Admitting Diagnosis: dizziness Final Diagnosis Problems Medical Problems: (1) Dizziness Status: Acute (2) Vertigo Status: Acute Brief Hospital Course Allergies Allergies Coded Allergies Type Severity Reaction Last Updated Verified No Known Drug Allergies 08/10/16 No Vital Signs Vital Signs Date Time Temp Pulse Resp B/P (MAP) Pulse Ox O2 Delivery O2 Flow Rate FiO2 11/11/18 08:04 66 173/103 11/11/18 07:00 98.0 18 100 Room Air 98.0 Lab Results Laboratory Tests Test 11/09/18 11:03 11/09/18 11:10 11/10/18 05:05 11/11/18 05:20 Glucose (Fingerstick) 82 mg/dL (70-99) White Blood Count 4.5 x10^3/uL (4.0-11.0) 4.5 x10^3/uL (4.0-11.0) Red Blood Count 4.08 x10^6/uL (4.30-5.70) 3.87 x10^6/uL (4.30-5.70) Hemoglobin 12.7 g/dL (13.0-17.5) 12.3 g/dL (13.0-17.5) Hematocrit 38.7 % (39.0-53.0) 36.6 % (39.0-53.0) Mean Corpuscular Volume 95 fL (79-100) 95 fL (79-100) Mean Corpuscular Hemoglobin 31 pg (25-35) 32 pg (25-35) Mean Corpuscular Hemoglobin Concent 33 g/dL (31-37) 34 g/dL (31-37) Red Cell Distribution Width 13.4 % (11.5-14.5) 13.7 % (11.5-14.5) Platelet Count 213 x10^3/uL (140-400) 206 x10^3/uL (140-400) Neutrophils (%) (Auto) 49 % (31-73) 48 % (31-73) Lymphocytes (%) (Auto) 44 % (24-48) 45 % (24-48) Monocytes (%) (Auto) 6 % (0-9) 5 % (0-9) Eosinophils (%) (Auto) 0 % (0-3) 1 % (0-3) Basophils (%) (Auto) 0 % (0-3) 1 % (0-3) Neutrophils # (Auto) 2.2 x10^3uL (1.8-7.7) 2.2 x10^3uL (1.8-7.7) Lymphocytes # (Auto) 2.0 x10^3/uL (1.0-4.8) 2.0 x10^3/uL (1.0-4.8) Monocytes # (Auto) 0.3 x10^3/uL (0.0-1.1) 0.2 x10^3/uL (0.0-1.1) Eosinophils # (Auto) 0.0 x10^3/uL (0.0-0.7) 0.0 x10^3/uL (0.0-0.7) Basophils # (Auto) 0.0 x10^3/uL (0.0-0.2) 0.0 x10^3/uL (0.0-0.2) Sodium Level 141 mmol/L (136-145) 143 mmol/L (136-145) Potassium Level 3.9 mmol/L (3.5-5.1) 3.8 mmol/L (3.5-5.1) Chloride Level 105 mmol/L (98-107) 107 mmol/L (98-107) Carbon Dioxide Level 28 mmol/L (21-32) 27 mmol/L (21-32) Anion Gap 8 (6-14) 9 (6-14) Blood Urea Nitrogen 16 mg/dL (8-26) 12 mg/dL (8-26) Creatinine 0.8 mg/dL (0.7-1.3) 1.0 mg/dL (0.7-1.3) Estimated GFR (Cockcroft-Gault) 115.3 89.1 BUN/Creatinine Ratio 20 (6-20) Glucose Level 97 mg/dL (70-99) 131 mg/dL (70-99) Calcium Level 8.7 mg/dL (8.5-10.1) 8.3 mg/dL (8.5-10.1) Magnesium Level 2.3 mg/dL (1.8-2.4) Total Bilirubin 0.5 mg/dL (0.2-1.0) Aspartate Amino Transf (AST/SGOT) 15 U/L (15-37) Alanine Aminotransferase (ALT/SGPT) 22 U/L (16-63) Alkaline Phosphatase 61 U/L (46-116) Troponin I Quantitative < 0.017 ng/mL (0.000-0.055) XW-Hco-I-Type Natriuretic Peptide 93 pg/mL (0-124) Total Protein 7.0 g/dL (6.4-8.2) Albumin 3.3 g/dL (3.4-5.0) Albumin/Globulin Ratio 0.9 (1.0-1.7) Thyroid Stimulating Hormone (TSH) 0.985 uIU/mL (0.358-3.74) Erythrocyte Sedimentation Rate 14 (0-15) Laboratory Tests Test 11/11/18 05:20 Erythrocyte Sedimentation Rate 14 (0-15) Brief Hospital Course Mr. Reyes is a 73 old male who presented with inability to get into his truck and unsteady gait due to lightheadedness and what he referred as dizziness. The patient during my initial assessment did not present concerning signs. Neurology consultation was requested and diagnosis of vertigo was given. The patient responded well to meclizine he also can complained of constipation during his hospital stay which was resolved with magnesium Site-Rite. Patient was in good spirits to be dismissed home, there was some concern by nursing staff that might be having some problems swallowing so a speech therapy evaluation was requested prior to dismissal. We are waiting for this in the time of this note. He will do be dismissed with the proper indications once the evaluation has been done. Patient will also have meclizine on an as-needed basis Physical exam: Lungs clear to auscultation bilaterally good inspiratory effort Cardiovascular exam S1-S2 regular rhythm no murmurs Neurologic cranial nerves II through XII intact motor or sensory deficits appreciated Discharge Information Condition at Discharge: Improved Follow Up: Weeks (1 week with primary care physician) Disposition/Orders: D/C to Home Scheduled Hydrochlorothiazide (Hydrochlorothiazide Tablet) 50 Mg Tablet, 1 TAB PO DAILY, # 30 Ref 5 (Reported) Entered as Reported by: Rosalie Reyes on 08/11/16 9836 Last Action: Converted on 11/09/18 3325 by ZENIA HENDRICKS MD Metoprolol Tartrate (Metoprolol Tartrate) 50 Mg Tablet, 2 TAB PO BID for htn, # 60 Ref 5 (Reported) Entered as Reported by: Rosalie Reyes on 08/11/16657 Last Action: Continued on 11/09/181618 by ZENIA HENDRICKS MD Sertraline Hcl (Sertraline Hcl) 100 Mg Tablet, 100 MG PO DAILY for ANTI- DEPRESSANT, Ref 0 (Reported) Entered as Reported by: Rosalie Reyes on 08/11/16657 Last Action: Converted on 11/09/181618 by ZENIA HENDRICKS MD Scheduled PRN Cyclobenzaprine Hcl (Cyclobenzaprine Hcl) 5 Mg Tablet, 1 TAB PO TID PRN for MUSCLE SPASMS, #10 Prescribed by: CHRIS BARNES on 08/10/162023 Last Action: Converted on 11/09/181618 by ZENIA HENDRICKS MD Meclizine Hcl (Meclizine Hcl) 12.5 Mg Tablet, 12.5 MG PO PRN Q6HRS PRN for DIZZINESS for 14 Days, #56 Prescribed by: ZENIA HENDRICKS MD on 11/11/18 0937 Miscellaneous Medications Loratadine (Claritin) 10 Mg Capsule, 10 MG PO, (Reported) Entered as Reported by: Rosalie Reyes on 08/11/16657 Last Action: Reviewed on 11/09/181529 by ZENIA PEREZ MD Nov 11, 2018 09:42
[2018-11-11] MEDS: METOPROLOL TART IMMED RELEASE 50 MG TABLET. PO SCH (09:44)
--- NOTE | 2018-11-11 10:32 | NUR ---
Bedside Swallow Evaluation completed. Please refer to full report for additional information. Impressions: Functional oropharyngeal swallow. Pt appears low risk of aspiration for all consistencies. No s/s aspiration observed. Recommendations: Regular diet w/ thin liquids. General swallow precautions. General swallow precautions d/w pt who states understanding. No additional ST services indicated.
[2018-11-11 11:00] VITALS: BP 137/90
[2018-11-11 15:00] VITALS: BP 131/86
--- NOTE | 2018-11-11 15:44 | PDOC ---
PROGRESS NOTES Assessment Problems Medical Problems: (1) Dizziness Status: Acute (2) Vertigo Status: Acute Peripheral vertigo, resolved. Long-standing gait disorder related to a picture of peripheral neuropathy, although lumbar polyradiculopathy is also possible. Laboratory studies so far negative for causes of neuropathy, again note that his initial glucose was elevated Recommendations: Plan I do not think he needs an MRI, and he cannot have one anyway. Dizziness resolved, no need to repeat his head CT and pursue further stroke workup Await laboratory studies for easily reversible causes of neuropathy Follow-up in my office for EMG studies of the lower extremities. Okay for discharge Subjective Denies vertigo, feels much better, wants to go home Objective Vital Signs Date Time Temp Pulse Resp B/P (MAP) Pulse Ox O2 Delivery O2 Flow Rate FiO2 11/11/18 15:00 98.0 81 18 131/86 (101) 98 Room Air 98.0 Intake and Output 11/11/18 07:00 Intake Total 960 ml Output Total 200 ml Balance 760 ml Intake Oral 960 ml Output Urine Total 200 ml # Voids 7 # Bowel Movements 3 PHYSICAL EXAM Alert. Oriented to time, place and person. PERRL. EOMI. no nystagmus elicited. CN: no focal findings. Muscle tone: normal. Muscle strength: 5/5 DTR: 0-1+ Plantar reflex: Flexor Gait: Apraxic and antalgic. Sensory exam: Stocking loss for vibration. No cerebellar signs elicited. Review of Relevant I have reviewed the following items catia (where applicable) has been applied. Labs Laboratory Tests Test 11/10/18 05:05 11/11/18 05:20 White Blood Count 4.5 x10^3/uL (4.0-11.0) Red Blood Count 3.87 x10^6/uL (4.30-5.70) Hemoglobin 12.3 g/dL (13.0-17.5) Hematocrit 36.6 % (39.0-53.0) Mean Corpuscular Volume 95 fL (79-100) Mean Corpuscular Hemoglobin 32 pg (25-35) Mean Corpuscular Hemoglobin Concent 34 g/dL (31-37) Red Cell Distribution Width 13.7 % (11.5-14.5) Platelet Count 206 x10^3/uL (140-400) Neutrophils (%) (Auto) 48 % (31-73) Lymphocytes (%) (Auto) 45 % (24-48) Monocytes (%) (Auto) 5 % (0-9) Eosinophils (%) (Auto) 1 % (0-3) Basophils (%) (Auto) 1 % (0-3) Neutrophils # (Auto) 2.2 x10^3uL (1.8-7.7) Lymphocytes # (Auto) 2.0 x10^3/uL (1.0-4.8) Monocytes # (Auto) 0.2 x10^3/uL (0.0-1.1) Eosinophils # (Auto) 0.0 x10^3/uL (0.0-0.7) Basophils # (Auto) 0.0 x10^3/uL (0.0-0.2) Sodium Level 143 mmol/L (136-145) Potassium Level 3.8 mmol/L (3.5-5.1) Chloride Level 107 mmol/L (98-107) Carbon Dioxide Level 27 mmol/L (21-32) Anion Gap 9 (6-14) Blood Urea Nitrogen 12 mg/dL (8-26) Creatinine 1.0 mg/dL (0.7-1.3) Estimated GFR (Cockcroft-Gault) 89.1 Glucose Level 131 mg/dL (70-99) Calcium Level 8.3 mg/dL (8.5-10.1) Erythrocyte Sedimentation Rate 14 (0-15) Laboratory Tests Test 11/11/18 05:20 Erythrocyte Sedimentation Rate 14 (0-15) Medications Current Medications Meclizine HCl (Antivert) 25 mg 1X ONCE PO Last administered on 11/09/18at 11:41 ; Start 11/09/18 at 10:45; Stop 11/09/18 at 10:46; Status DC Sodium Chloride 1,000 ml @ 1,000 mls/hr 1X ONCE IV Last administered on at 11:43; Start 11/09/18 at 10:45; Stop 11/09/18 at 11:44; Status DC Ondansetron HCl (Zofran) 4 mg PRN Q8HRS PRN IV NAUSEA/VOMITING; Start 11/09/18 at 15:15; Stop 11/10/18 at 15:14; Status UNV Acetaminophen (Tylenol) 650 mg PRN Q4HRS PRN PO FEVER; Start 11/09/18 at 15:15; Stop 11/09/18 at 20:07; Status DC Sodium Chloride 1,000 ml @ 125 mls/hr 1X ONCE IV Last administered on at 15:59; Start 11/09/18 at 15:15; Stop 11/09/18 at 23:14; Status DC Ondansetron HCl (Zofran) 4 mg PRN Q6HRS PRN IV NAUSEA/VOMITING; Start 11/09/18 at 15:15 Meclizine HCl (Antivert) 12.5 mg PRN Q6HRS PRN PO DIZZINESS; Start 11/09/18 at 15:30 Ondansetron HCl (Zofran) 4 mg PRN Q4HRS PRN IV NAUSEA/VOMITING; Start 11/09/18 at 16:15; Stop 11/09/18 at 16:32; Status DC Acetaminophen (Tylenol) 650 mg PRN Q4HRS PRN PO TEMP OVER 100.4F OR MILD PAIN; Start 11/09/18 at 16:15 Docusate Sodium (Colace) 100 mg PRN BID PRN PO HARD STOOLS Last administered on 11/10/18at 09:49; Start 11/09/18 at 16:15 Albuterol/ Ipratropium (Duoneb) 3 ml Q4HRS NEB Last administered on 11/10/18at 07 :23; Start 11/09/18 at 17:00; Stop 11/10/18 at 09:39; Status DC Guaifenesin (Robitussin) 200 mg PRN Q4HRS PRN PO COUGH; Start 11/09/18 at 16:15 Lorazepam (Ativan) 0.5 mg PRN Q4HRS PRN PO ANXIETY / AGITATION; Start 11/09/18 at 16:15 Enoxaparin Sodium (Lovenox 40mg Syringe) 40 mg DAILY SQ Last administered on 11/10/18at 09:52; Start 11/10/18 at 09:00 Metoprolol Tartrate (Lopressor) 100 mg BID PO Last administered on 11/11/18at 09 :44; Start 11/09/18 at 21:00 Cyclobenzaprine HCl (Flexeril) 5 mg PRN TID PRN PO MUSCLE SPASMS Last administered on 11/10/18 21:01; Start 11/09/18 at 16:45 Hydrochlorothiazide (Hydrodiuril) 50 mg DAILY PO Last administered on at 09:00; Start 11/10/18 at 09:00 Sertraline HCl (Zoloft) 100 mg DAILY PO Last administered on 11/10/18at 09:48; Start 11/10/18 at 09:00 Polyethylene Glycol (miraLAX PACKET) 17 gm PRN DAILY PRN PO CONSTIPATION Last administered on 11/09/18at 21:07; Start 11/09/18 at 20:15 Labetalol HCl (Normodyne Iv Push) 10 mg PRN Q8HRS PRN IVP HYPERTENSION, SEE COMMENTS Last administered on 11/11/18 08:04; Start 11/10/18 at 03:15 Magnesium Citrate (Citroma) 296 ml 1X ONCE PO Last administered on 11/10/18at 09 :43; Start 11/10/18 at 09:00; Stop 11/10/18 at 09:01; Status DC Albuterol Sulfate (Ventolin Neb Soln) 2.5 mg PRN Q4HRS PRN NEB SHORTNESS OF BREATH; Start 11/10/18 at 09:45 Active Scripts Active Meclizine Hcl 12.5 Mg Tablet 12.5 Mg PO PRN Q6HRS PRN 14 Days Cyclobenzaprine Hcl 5 Mg Tablet 1 Tab PO TID PRN Reported Metoprolol Tartrate 50 Mg Tablet 2 Tab PO BID Claritin (Loratadine) 10 Mg Capsule 10 Mg PO Hydrochlorothiazide Tablet (Hydrochlorothiazide) 50 Mg Tablet 1 Tab PO DAILY Sertraline Hcl 100 Mg Tablet 100 Mg PO DAILY Vitals/I & O Vital Sign - Last 24 Hours 11/10/18 11/10/18 11/10/18 11/10/18 19:46 20:00 20:50 23:18 Temp 97.6 97.5 97.6 97.5 Pulse 70 70 69 Resp 20 20 B/P (MAP) 143/83 (103) 143/83 149/75 (99) Pulse Ox 100 100 O2 Delivery Room Air Room Air Room Air 11/11/18 11/11/18 11/11/18 11/11/18 03:49 07:00 08:00 08:04 Temp 98.0 98.0 98.0 98.0 Pulse 74 66 66 Resp 20 18 B/P (MAP) 147/95 (112) 173/103 (126) 173/103 Pulse Ox 98 100 O2 Delivery Room Air Room Air Room Air 11/11/18 11/11/18 11/11/18 09:44 11:00 15:00 Temp 97.5 98.0 97.5 98.0 Pulse 66 83 81 Resp 18 18 B/P (MAP) 158/95 137/90 (106) 131/86 (101) Pulse Ox 99 98 O2 Delivery Room Air Room Air Intake and Output 11/10/18 11/10/18 11/11/18 15:00 23:00 07:00 Intake Total 400 ml 250 ml 310 ml Output Total 200 ml Balance 400 ml 250 ml 110 ml VANNA GODFREY MD Nov 11, 2018 15:44
--- NOTE | 2018-11-11 16:13 | NUR ---
Discharge Note: VANNA IRELAND Discharge instructions and discharge home medications reviewed with Patient and a copy given. All questions have been answered and understanding verbalized. The following instructions and handouts were given: Worsening symptoms, follow up information, and medication information. Discontinued lines and drains: IV pulled and skin intact. Patient discharged to home with brother via private transportation
[2018-11-13 15:26] LABS: ALBUM 3.4 g/dL (2.9-4.4); ALPHA 1 0.2 g/dL (0.0-0.4); ALPHA 2 0.5 g/dL (0.4-1.0); GAMMA 1.3 g/dL (0.4-1.8); PROTEIN TOTAL 6.4 g/dL (6.0-8.5); SPEP AG RATIO 1.1 (0.7-1.7)
[2018-11-14 19:14] LABS: ANA INTERP Negative (.)
== END 2018-11-11 15:50 | disposition home or self-care (01) ==
LOC: ER 10:19 → 6 SOUTH 14:08
PROVIDERS: ADMIT Internal Medicine; ATTEND Internal Medicine
DX: R42 Dizziness and giddiness (principal); E78.5 Hyperlipidemia, unspecified; I10 Essential (primary) hypertension; M19.90 Unspecified osteoarthritis, unspecified site; R53.1 Weakness; R47.81 Slurred speech; K59.00 Constipation, unspecified; R26.81 Unsteadiness on feet
CPT/HCPCS: 36415; 70450; 71045; 80048; 80053; 82607; 82962; 83036; 83735; 83880; 84165; 84443; 84484; 85025; 85651; 86038; 92610; 93005; 94640; 96361; 96372; 96374; 96376; 97116; 97162; 97166; 99284; G0378; G8987; G8988; J1650; J3490; J7030; J7620; J8597; G0379

== ENCOUNTER 2018-11-12 18:32 | Emergency (ER) | payer MEDICARE, OTHER ==
[2018-11-11 15:00] VITALS: BP 131/86
[~2018-11-12 18:32] MED LIST changes: +MECL12.52 PO
== END 2018-11-12 18:45 | disposition left against medical advice (07) ==
LOC: ER 18:32
DX: R06.02 Shortness of breath (principal); Z53.21 Procedure and treatment not carried out due to patient leaving prior to being seen by health care provider

== ENCOUNTER → 2018-12-06 | Outpatient (CLI) | payer MEDICARE, OTHER ==
[2018-11-11 15:00] VITALS: BP 131/86
[2018-12-06 17:02] LABS: ALBUMIN 4.1 g/dL (3.4-5.0); CALCIUM 9.2 mg/dL (8.5-10.1); CREATININE 1.5 mg/dL (0.7-1.3); GFR 55.8; POTASSIUM 4.1 mmol/L (3.5-5.1); TOTAL BILIRUBIN 0.6 mg/dL (0.2-1.0); TOTAL PROTEIN 8.3 g/dL (6.4-8.2)
== END | disposition home or self-care (01) ==
LOC: LAB 16:20
PROVIDERS: ATTEND Psychiatry & Neurology Neurology
DX: R20.0 Anesthesia of skin (principal)
CPT/HCPCS: 36415; 80053

== ENCOUNTER → 2019-01-24 | Outpatient (CLI) | payer MEDICARE, OTHER ==
--- NOTE | 2019-01-24 07:39 | RAD ---
Abdominal aortic ultrasound, 01/24/2019: HISTORY: Atherosclerosis,, aortic aneurysm screening The upper and mid abdominal aorta are of normal caliber. There is calcific plaquing involving its hayes. The distal abdominal aorta was partially obscured by overlying bowel. Note is made that a CT lumbar spine exam from 09/20/2017 showed no evidence of abdominal aortic aneurysm. IMPRESSION: Aortic atherosclerosis without evidence of abdominal aortic aneurysm. Electronically signed by: Immanuel Ferrara MD (01/24/2019 7:36 AM) [facility]
== END | disposition home or self-care (01) ==
LOC: US 06:23
PROVIDERS: ATTEND Family Medicine
DX: Z13.6 Encounter for screening for cardiovascular disorders (principal); I70.0 Atherosclerosis of aorta
CPT/HCPCS: 76770

== ENCOUNTER → 2019-02-26 | Outpatient (CLI) | payer MEDICARE, OTHER ==
[2019-02-26 13:08] LABS: BILIRUBIN,URINE SMALL (NEG); CLARITY,URINE CLOUDY; COLOR,URINE YELLOW; NITRITE,URINE NEGATIVE (NEG); PROTEIN,URINE NEGATIVE (NEG-TRACE)
[2019-02-26 13:19] LABS: RBC,URINE OCC /HPF (0-2)
[2019-02-26 13:20] LABS: BACTERIA,URINE MANY /HPF (0-FEW); WBC,URINE >40 /HPF (0-4)
== END | disposition home or self-care (01) ==
LOC: LAB 11:46
PROVIDERS: ATTEND Psychiatry & Neurology Neurology
DX: R20.0 Anesthesia of skin (principal); Z79.899 Other long term (current) drug therapy
CPT/HCPCS: 36415; 81001; 82607; 87086; 87186